=== PATIENT | male | born 1945 | race Caucasian/White ===

== ENCOUNTER → 2018-08-02 | Outpatient (CLI) | payer MEDICARE, BC ==
[2018-08-02 08:46] LABS: ALBUMIN 4.5 g/dL (3.5-5.0); CALCIUM 9.8 mg/dL (8.4-10.2); TOTAL BILIRUBIN 0.6 mg/dL (0.2-1.3); TOTAL PROTEIN 7.9 g/dL (6.3-8.2)
[2018-08-02 10:18] LABS: PH-URINE 6.5 (5.0 - 8.0); URINE APPEARANCE CLEAR; URINE BILIRUBIN NEGATIVE (NEGATIVE); URINE BLOOD NEGATIVE (NEGATIVE); URINE COLOR YELLOW; URINE GLUCOSE NEGATIVE (NEGATIVE); URINE KETONE NEGATIVE (NEGATIVE); URINE LEUKOCYTE ESTERASE NEGATIVE (NEGATIVE); URINE MUCUS PRESENT (NOT PRESENT); URINE NITRATE NEGATIVE (NEGATIVE); URINE PROTEIN(semi-quant) NEGATIVE (NEGATIVE); URINE UROBILINOGEN NORMAL (NORMAL)
== END ==
LOC: LAB 07:59
PROVIDERS: Family Medicine
DX: Z00.00 Encounter for general adult medical examination without abnormal findings (principal); E78.00 Pure hypercholesterolemia, unspecified; I10 Essential (primary) hypertension

== ENCOUNTER 2020-04-15 07:16 | Emergency (ER) | payer MEDICARE, BC ==
[2020-04-15] MEDS ORDERED: TRAMADOL 50 MG TAB PO (07:32)
[2020-04-15] MEDS ORDERED: LOPID600 MG PO (07:33)
[2020-04-15] MEDS ORDERED: NORVASC 10MG10 MG PO (07:33)
[2020-04-15] MEDS ORDERED: CALCIUM CARBON650 M2 PO (07:34)
[2020-04-15] MEDS ORDERED: HCTZ 25MG25 MG PO (07:34)
[2020-04-15] MEDS ORDERED: MAGNESIUM400 MG PO (07:34)
[2020-04-15] MEDS ORDERED: COLACE100 M1 PO (07:34)
[2020-04-15] MEDS ORDERED: CETIRIZINE HCL10 MG PO (07:35)
[2020-04-15] MEDS ORDERED: SINGULAIR 110 MG/TAB PO (07:35)
[2020-04-15] MEDS ORDERED: GLUCOPHAGE PO (07:35)
[2020-04-15 07:58] LABS: EOS # 0.2 (0.04-0.40); EOS % 3.3 % (0.0-4.0); HEMATOCRIT 42.8 % (42.0-52.0); HEMOGLOBIN 14.6 g/dL (13.5-18.0); LYMPH# 2.5 (1.50-4.00); MEAN CELL VOLUME 81 fl (78-100); MEAN CORPUSCULAR HEMOGLOBIN 28 pg (27-31); MEAN CORPUSCULAR HGB CONC 34 g/dL (33-37); MEAN PLATELET VOLUME 9.6 fl (7.4-10.4); MONO # 0.7 (0.20-0.80); PLATELET COUNT 288 K/mm3 (130-400); RED CELL DISTRIBUTION WIDTH 13.7 % (11.5-14.5); WHITE BLOOD COUNT 6.4 K/mm3 (4.8-10.8)
[2020-04-15 08:06] LABS: ALBUMIN 4.1 g/dL (3.4-4.8)
[2020-04-15 08:08] LABS: CALCIUM 9.4 mg/dL (8.3-10.5)
[2020-04-15 08:09] LABS: TOTAL PROTEIN 7.5 g/dL (6.2-8.1)
[2020-04-15 08:11] LABS: TOTAL BILIRUBIN 0.5 mg/dL (0.2-1.2)
[2020-04-15 09:33] VITALS: BP 145/71
== END 2020-04-15 09:33 | disposition home or self-care (01) ==
LOC: ED 07:16
PROVIDERS: Physician Assistant
DX: K59.00 Constipation, unspecified (principal); E11.9 Type 2 diabetes mellitus without complications; I10 Essential (primary) hypertension; E78.5 Hyperlipidemia, unspecified; Z90.49 Acquired absence of other specified parts of digestive tract; Z79.84 Long term (current) use of oral hypoglycemic drugs

== ENCOUNTER → 2021-09-25 | Outpatient (CLI) | payer MEDICARE, BC ==
[~2021-09-25] MED LIST: CALCIUM CARBON650 M2 PO; CETIRIZINE HCL10 MG PO; COLACE100 M1 PO; GLUCOPHAGE PO; HCTZ 25MG25 MG PO; LOPID600 MG PO; MAGNESIUM400 MG PO; NORVASC 10MG10 MG PO; SINGULAIR 110 MG/TAB PO; TRAMADOL 50 MG TAB PO
== END ==
LOC: LAB 10:36
DX: C61 Malignant neoplasm of prostate (principal)

== ENCOUNTER 2023-11-02 07:58 | Outpatient (RCR) | payer MEDICARE, BC ==
[~2023-11-02 07:58] MED LIST changes: +ATORVASTATIN CA40 MG PO; -CALCIUM CARBON650 M2 PO; +LOSARTAN POTASS50 M1 PO; +MASON NATURAL500 MG PO; +METHIMAZOLE10 M1 PO; +NATURE'S BLEND500 M5 PO; +ZOFRAN ODT4 MG PO
== END 2023-11-23 | disposition home or self-care (01) ==
LOC: PT
DX: M54.50 Low back pain, unspecified (principal); M79.604 Pain in right leg; Z98.890 Other specified postprocedural states